=== PATIENT | female | born 1965 | race Caucasian/White ===

== ENCOUNTER → 2020-08-18 | Outpatient (CLI) | payer OTHER ==
[~2020-08-18] MED LIST: HUMI40KI2 SC; MULT1TAB7 PO; PROB250C PO; SYNT125T PO; ULTR5TAB PO
== END ==
LOC: M PLALAB 13:28
PROVIDERS: ATTEND Surgery
DX: Z15.09 Genetic susceptibility to other malignant neoplasm (principal)

== ENCOUNTER → 2020-08-23 | Outpatient (CLI) | payer OTHER ==
[~2020-08-23] MED LIST changes: +LIDOCAINE 1% MDV 20ML VIAL As Ordered ONE; +MIDAZOLAM INJ 2MG/2ML VIAL (J2250 PER 1MG) As Ordered ONE; +ONDA-196 PO; +PROC10TA4 PO; +PROMETHAZINE INJ 25 MG/ML VIAL (J2550) As Ordered ONE; +VANCOMYCIN 500MG/10ML VIAL As Ordered ONE; +diphenhydrAMINE 50MG/ML VIAL (J1200) As Ordered ONE; +fentaNYL 100 MCG/2 ML INJECTION (J3010) As Ordered ONE
--- NOTE | 2020-08-23 13:51 | IRHP ---
[facility] IR Pre-Procedure H & P General Date of Service: Aug 23, 2020 Procedure: Same Day Surgery Interval History and Physical I have seen the patient and reviewed last H & P performed within 30 days. There is no significant interval change. History of Present Illness Chief Complaint The patient is a 55-year-old female admitted with a reason for visit of Breast Ca. PRE-PROCEDURE DIAGNOSIS: Left-sided breast cancer HEART: Normal rate. LUNGS: Normal breathing at rest. ASA Classification ASA Classification: II-Mild systemic disease Mallampati Score: II NPO: Yes Problems with prior sedation: No Obstructive Sleep Apnea: No Plan moderate sedation Allergies Coded Allergies: Penicillins (Verified Allergy, Unknown, UNKNOWN, 08/10/20) Home Medications Scheduled Adalimumab (Humira Pen), 1 SYRINGE SC Q2WK, (Reported) Biotin (Biotin), 1 TAB PO DAILY, (Reported) Levothyroxine Sodium (Synthroid), 1 TAB PO DAILY, (Reported) Saccharomyces Boulardii (Probiotic), 1 CAP PO BID, (Reported) Scheduled PRN Ondansetron HCl (Ondansetron HCl), 8 MG PO Q8HP PRN for NAUSEA OR VOMITING Prochlorperazine Maleate (Prochlorperazine Maleate), 10 MG PO Q8HP PRN for ROGER SEA OR VOMITING Miscellaneous Medications Multivitamin with Minerals (Multiple Vitamin), 1 TAB PO, (Reported) VS, I&O, 24H, Fishbone Vital Signs/I&O Vital Signs Date Time Temp Pulse Resp B/P (MAP) Pulse Ox O2 Delivery O2 Flow Rate FiO2 08/23/20 12:42 98.0 63 16 99 Room Air WING TINAJERO MD Aug 23, 2020 13:51
[2020-08-23 16:30] VITALS: BP 113/59
--- NOTE | 2020-08-24 08:43 | IRPON ---
IR Postoperative Note Date Of Procedure: Aug 23, 2020 Time Of Procedure: 16:00 IR Postoperative Note IR Ultrasound and fluoroscopy guided port placement IR Ultrasound of the neck. IR Moderate sedation. Clinical indication: Left-sided breast cancer. Physician: Dr. Noe. Procedure: The patient was advised of the benefits, risks, and alternatives of the procedure and informed consent was obtained. A time-out was performed with verification of the patient's name, MRN, site of procedure and type of procedure to be performed. The patient was positioned in the supine position on the angiographic table. The site was prepped and draped in the usual sterile fashion. Moderate sedation was performed by the physician including the presence of an independent trained RN who assisted and monitored the patient's level of consciousness and physiologic status. Following the administration of fentanyl and Versed , the physician spent 45 minutes of continuous face to face time with the patient. Ultrasound of the neck reveals a patent and compressible right internal jugular vein. A marine designer radiograph reveals no gross abnormality. The neck and anterior chest wall were anesthetized with lidocaine. The right internal jugular vein was accessed using a microintroducer needle under ultrasound guidance, via a lateral approach. An 018 wire was advanced into the superior vena cava, the needle was removed and a microsheath was placed. An Amplatz wire was then passed into the inferior vena cava. An incision at the internal jugular vein access site and anterior chest wall were made using a scalpel. An incision was made at the anterior chest wall. A small pocket was created using a combination of blunt and sharp dissection. A tunneling device was then used to pass the catheter from the pocket to the neck puncture site. An 8- [employer] Smart power port was then positioned in the pocket. The catheter was then measured and cut. The introducer sheath was exchanged for a peel-away sheath. The catheter was passed through the peel-away sheath into the internal jugular vein and the peel-away sheath was removed. The port tip was positioned at the cavoatrial junction. The port was then accessed with a Abbasi needle. The port flushes and aspirates well. The puncture site in the neck was closed. The chest wall incision was then closed with 2-0 Vicryl and 4-0 Monocryl. Glue and Steri- Strips were applied. A sterile dressing was then applied. The patient tolerated the procedure well and was returned to the PRU in stable condition. Estimated blood loss: <5 ml. Complications: None. Conclusion: 1. Successful placement of an 8-[employer] [employer] Smart power port via the right internal jugular vein. The port is ready for immediate use. 2. Patient to follow up in IR clinic in 2 weeks. Thank you for this referral. WING NOE MD Aug 24, 2020 08:43
== END ==
LOC: M IRPRO 12:27
PROVIDERS: ATTEND Radiology Diagnostic Radiology
DX: C50.912 Malignant neoplasm of unspecified site of left female breast (principal); Z88.0 Allergy status to penicillin; Z79.899 Other long term (current) drug therapy
CPT/HCPCS: 36561; 99152; 99153; C1769; C1788; C1894; J1200; J1642; J1644; J2250; J3010; J3370

== ENCOUNTER → 2020-08-24 | Outpatient (CLI) | payer OTHER ==
[~2020-08-24] MED LIST changes: -LIDOCAINE 1% MDV 20ML VIAL As Ordered ONE; -MIDAZOLAM INJ 2MG/2ML VIAL (J2250 PER 1MG) As Ordered ONE; -PROMETHAZINE INJ 25 MG/ML VIAL (J2550) As Ordered ONE; -VANCOMYCIN 500MG/10ML VIAL As Ordered ONE; -diphenhydrAMINE 50MG/ML VIAL (J1200) As Ordered ONE; -fentaNYL 100 MCG/2 ML INJECTION (J3010) As Ordered ONE
--- NOTE | 2020-08-28 09:20 | ECHO ---
DATE OF PROCEDURE: 08/24/2020 Age: 55 Gender: Female Height: 67 inches Weight: 117 pounds REFERRING PHYSICIAN: Luiz Acosta MD INDICATION: Chemotherapy drugs that may affect the heart. MEASUREMENTS: 2D Measurements: Left ventricle diastole 4.3 cm Intraventricular septum 0.81 cm Posterior wall 0.82 cm Aortic root 3.0 cm Left atrium 3.0 cm Inferior vena cava 1.2 cm (more than 50% respiratory variation) Doppler Measurements: No aortic stenosis No aortic regurgitation Aortic valve velocity 168 cm/s LVOT velocity 96.6 cm/s Trace mitral regurgitation Mitral E velocity 78.0 cm/s Mitral A velocity 57.4 cm/s Mitral deceleration time 240 msec Very mild tricuspid regurgitation No pulmonic regurgitation Pulmonary artery acceleration time 195 msec MITRAL ANNULAR TISSUE DOPPLER E prime septal 8.9 cm/s, E prime lateral 12.2 cm/s DESCRIPTION: Rhythm was predominantly sinus bradycardia. Image quality was good. This was a 2D, M-mode, color flow Doppler, and pulsed wave Doppler examination including mitral annular tissue Doppler. No pericardial effusion. CONCLUSIONS: 1. Normal echocardiogram Doppler. 2. Normal left ventricle internal dimensions and wall thickness. Normal regional LV wall motion and wall thickening. Normal LV systolic function. LVEF of 72% (3D). Normal LV diastolic function. Normal peak systolic longitudinal strain. MTDD
== END ==
LOC: M CARPUL 11:17
PROVIDERS: ATTEND Specialist
DX: C50.919 Malignant neoplasm of unspecified site of unspecified female breast (principal)

== ENCOUNTER → 2020-08-28 | Outpatient (CLI) | payer OTHER ==
--- NOTE | 2020-08-29 19:02 | REP ---
INDICATION: STAGING LEFT BREAST CANCER. COMPARISON: None. TECHNIQUE: Whole-body PET/CT scanning from the skull base to the upper thighs with 14.8 mCi of F 18 FDG. FINDINGS: Neck and supraclavicular areas: There are no hypermetabolic foci. Chest: There is an hypermetabolic focus in the left breast with a standard uptake value of 3.24. There are no other hypermetabolic foci in the chest. Abdomen, pelvis and upper thighs: There is an hypermetabolic focus in the distal stomach with a maximal standard uptake value of 5.08. There are no hypermetabolic foci in the abdomen, pelvis or upper thighs, otherwise. Specifically there are no hepatic or adrenal foci. No skeletal foci are identified. IMPRESSION: There is an hypermetabolic focus in the left breast. There is an hypermetabolic focus in the distal stomach. <Electronically signed by Abhi Boston > 08/29/20 [id number]
== END ==
LOC: M PLARAD 13:05
PROVIDERS: ATTEND Specialist
DX: C50.812 Malignant neoplasm of overlapping sites of left female breast (principal)
CPT/HCPCS: 78815; A9552

== ENCOUNTER → 2020-09-09 | Outpatient (CLI) | payer OTHER ==
[~2020-09-09] MED LIST changes: +VITA200038 PO
== END ==
LOC: M LABSMTC 10:52
PROVIDERS: ATTEND Anesthesiology
DX: Z20.828 Contact with and (suspected) exposure to other viral communicable diseases (principal); Z11.59 Encounter for screening for other viral diseases

== ENCOUNTER → 2020-09-12 | Outpatient (POV) | payer OTHER ==
[~2020-09-12] VITALS: Ht 167.6 cm; Wt 53.2 kg
[2020-09-12 09:59] VITALS: BP 141/79
--- NOTE | 2020-09-15 08:19 | IRPN ---
[facility] IR Progress Note IR Progress Note DATE: Sep 12, 2020 FOLLOW-UP: Status post port placement. Patient says she is doing well, no pain or discharge from the site. No fevers or chills. ON EXAMINATION: Port site appears to be healing well. No redness, fluctuance or discharge. IMPRESSION: Doing well status post port placement. No further follow-up scheduled unless initiated by patient and/or referring provider. Thank you for this referral Allergies Coded Allergies: Penicillins (Verified Allergy, Unknown, UNKNOWN, 08/10/20) VS,Fishbone, I+O VS, Fishbone, I+O Vital Signs Date Time Temp Pulse Resp B/P (MAP) Pulse Ox O2 Delivery O2 Flow Rate FiO2 09/12/20 09:59 98.6 70 20 141/79 (99) 100 Room Air WING TINAJERO MD Sep 15, 2020 08:19
== END ==
LOC: M IRPOV 09:19
PROVIDERS: ATTEND Radiology Diagnostic Radiology
DX: Z45.2 Encounter for adjustment and management of vascular access device (principal)

== ENCOUNTER 2020-09-14 06:35 | Day surgery (SDC) | payer OTHER ==
[~2020-09-14] VITALS: Ht 165.1 cm; Wt 56.4 kg
[~2020-09-14 06:35] MED LIST changes: +NS 1,000 ML IV ONE
[2020-09-14] MEDS ORDERED: propofoL 500 MG/50 ML VIAL As Ordered ONE (07:16)
[2020-09-14] MEDS ORDERED: LIDOCAINE 2% 100MG/5ML SDV (FOR ANES.) As Ordered ONE (07:16)
[2020-09-14] MEDS ORDERED: fentaNYL 100 MCG/2 ML INJECTION (J3010) As Ordered ONE (07:18)
--- NOTE | 2020-09-14 08:03 | ROOR ---
Patient Name: Zoraida Gao Procedure Date: 09/14/2020 7:34 AM Date of : 1965 Age: 55 Room: [facility] Gender: Female Note Status: Finalized Procedure: Upper GI endoscopy Indications: Abnormal PET scan of the GI tract. PET shows area of activity at distal stomach Providers: Shay Qureshi MD Referring MD: EMILI SMITH MD Requesting Provider: Medicines: Monitored Anesthesia Care Complications: No immediate complications. Procedure: Pre-Anesthesia Assessment: - Prior to the procedure, a History and Physical was performed, and patient medications and allergies were reviewed. The patient is competent. The risks and benefits of the procedure and the sedation options and risks were discussed with the patient. All questions were answered and informed consent was obtained. Patient identification and proposed procedure were verified by the physician, the nurse and the wrapper stemmer hand in the procedure room. Mental Status Examination: alert and oriented. Airway Examination: normal oropharyngeal airway and neck mobility. Prophylactic Antibiotics: The patient does not require prophylactic antibiotics. Prior Anticoagulants: The patient has taken no previous anticoagulant or antiplatelet agents. ASA Grade Assessment: II - A patient with mild systemic disease. After reviewing the risks and benefits, the patient was deemed in satisfactory condition to undergo the procedure. The anesthesia plan was to use monitored anesthesia care (MAC). Immediately prior to administration of medications, the patient was re-assessed for adequacy to receive sedatives. The heart rate, respiratory rate, oxygen saturations, blood pressure, adequacy of pulmonary ventilation, and response to care were monitored throughout the procedure. The physical status of the patient was re-assessed after the procedure. The Endoscope was introduced through the mouth, and advanced to the second part of duodenum. The upper GI endoscopy was accomplished without difficulty. The patient tolerated the procedure well. Findings: The examined esophagus was normal. The entire examined stomach was normal. The examined duodenum was normal. Impression: - Normal esophagus. - Normal stomach. - Normal examined duodenum. - No specimens collected. Recommendation: - Discharge patient to home. - Resume previous diet. - Continue present medications. Procedure Code(s): --- Professional --- 20661, Esophagogastroduodenoscopy, flexible, transoral; diagnostic, including collection of specimen(s) by brushing or washing, when performed (separate procedure) Diagnosis Code(s): --- Professional --- R93.3, Abnormal findings on diagnostic imaging of other parts of digestive tract CPT copyright 2019 [employer]. All rights reserved. The codes documented in this report are preliminary and upon certified medical coder review may be revised to meet current compliance requirements. hSay Qureshi MD Shay Qureshi MD 09/14/2020 8:02:59 AM Electronically signed by Shay Qureshi MD Number of Addenda: 0 Note Initiated On: 09/14/2020 7:34 AM Estimated Blood Loss: Estimated blood loss: none.
[2020-09-14 08:15] VITALS: BP 108/66
[2020-09-21] MEDS ORDERED: LEVO125C PO (15:56)
[2020-09-21] MEDS ORDERED: PROC10TA4 PO (15:56)
[2020-09-21] MEDS ORDERED: PROBCAP14 PO (15:56)
[2020-09-21] MEDS ORDERED: HUMI40KI2 SC (15:56)
[2020-09-21] MEDS ORDERED: VITA200028 PO (15:56)
[2020-09-21] MEDS ORDERED: ONDA4TAB6 PO (15:56)
[2020-09-21] MEDS ORDERED: VITMTA PO (15:56)
[2020-09-21] MEDS ORDERED: LIDO2.5C15 TOP (16:15)
== END 2020-09-14 08:18 | disposition home or self-care (01) ==
LOC: M OPP 06:35
PROVIDERS: ATTEND Surgery
DX: R93.3 Abnormal findings on diagnostic imaging of other parts of digestive tract (principal); E03.9 Hypothyroidism, unspecified; K50.90 Crohn's disease, unspecified, without complications; Z85.3 Personal history of malignant neoplasm of breast; Z79.899 Other long term (current) drug therapy; Z88.0 Allergy status to penicillin
CPT/HCPCS: 43235; J3010

== ENCOUNTER → 2020-09-18 | Outpatient (CLI) | payer OTHER ==
[~2020-09-18] MED LIST changes: +LEVO125C PO; +LIDO2.5C15 TOP; -NS 1,000 ML IV ONE; +ONDA4TAB6 PO; +PROBCAP14 PO; +VITA200028 PO; +VITMTA PO
[2020-09-18 08:28] VITALS: BP 128/82
--- NOTE | 2020-09-18 09:59 | ROOPDOC ---
[facility] Report Of Operation Report of Operation DATE OF PROCEDURE: 09/18/20 DIAGNOSIS: Left breast cancer, left breast second suspicious nodule at 3:00 and left breast cystic lesion at 7:00 PROCEDURE: ultrasound guided biopsy of the left breast suspicious lesion at 3:00 with clip placement, second clip placement into know left breast cancer lesion and ultrasound guided aspiration of left breast 7:00 cystic lesion SURGEON: Nicolas Esqueda BLOOD LOSS: minimal COMPLICATIONS: none Lidocaine 1% LOT [id number] Expiration 04/2021 Sodium Bicarbonate 8.4% LOT [id number] Expiration 06/2021 Smaller 3:00 nodule bx Hydromark clip LOT [id number] Expiration 04/2023 SHAPE : 3 Bx device: TEMNO 18G x 20 cm LOT [id number] Expiration 06/2023 Known cancer site Hydromark clip LOT [id number] Expiration 04/2023 SHAPE : 4 Informed consent was obtained. The most common risk and possible complications including bleeding, hematoma, bruising, infection, injury to surrounding structures were explained to the patient and the patient expressed understanding. Patient was placed on the bed in the supine position. Appropriate time out was done stating patients name, date of , and the procedure to be performed. The left breast was prepped and draped in the usual fashion. The ultrasound was used to confirm the location of the lesion in the left breast at 3:00 lateral to the site of known cancer. There was also possibly cystic structure noted in the left breast at 7:00 2 centimeters from the nipple with possible adjacent blood flow on doppler. Plain Lidocaine 1% and 8.4% sodium bicarbonate 10:1 mix was used to anesthetize the skin, the biopsy site and tissues along the anticipated biopsy tract. Small skin incision was made with blade number 11. Temno 18G cannula with introducer was inserted through the incision and advanced under the ultrasound guidance to position immediately adjacent to the 3:00 nodular lesion. Next, the introducer was removed and Temno 18G biopsy device was places in the cannula. Pre-biopsy imaging, and post-biopsy imaging were captured. Two good core biopsies were taken at various levels of the lesion. No additional biopsies were taken as the lesion become poorly visible. Specimen was placed in formaldehyde, labeled with appropriate biopsy site and patients name, and sent to pathology for evaluation. Next, while the biopsy cannula was kept in place to kellie the site of biopsy, a clip introducer was inserted parallel to the canula. SHAPE 3 Hydromark clip was deployed under sonographic guidance. Post-clip placement image was captured. Manual pressure over the biopsy cavity and tract was held after the clip introducer was withdrawn. No bleeding was noted upon removal of the pressure. Next, our attention was turned toward known cancer mass. Using the same access site, which was previously anesthetized, additional local anesthetic was injected at the site of known cancer. Clip introducer was inserted under sonographic guidance into the know cancer site represented by irregular hypoechoic mass. Clip was deployed. The imaging was captured. The introducer was then removed and the manual pressure was held at the procedure site. No bleeding was seen upon pressure release. Steri strips were placed at the site of the skin incision. At this time, we focused at the site of cystic lesion located at left breast at 7:00 2 CFN. Plain Lidocaine 1% and 8.4% sodium bicarbonate 10:1 mix was used to anesthetize the skin, the aspiration site and tissues along the anticipated aspiration tract. The cystic lesion was aspirated completely with 18 G needle. 1 cc of serous fluid was removed. The lesion completely disappeared. Imaging was captured. Manual pressure was held at the aspiration site. Steri strips were placed over the skin puncture site. Post-biopsy mammogram of the left breast was obtained and showed 2 new clips in expected position. Postprocedural dressing was placed. Patient tolerated procedure well. Discharge instructions were discussed with the patient and the patient expressed understanding. NICOLAS ESQUEDA DO Sep 18, 2020 09:59
--- NOTE | 2020-09-18 10:42 | REP ---
INDICATION: N63.20 LT BREAST MASS ,US GUIDED BIOPSY. COMPARISON: None TECHNIQUE: Ultrasound guidance was provided Dr. Carranza during ultrasound-guided biopsy. . FINDINGS: A linear echogenic focus is seen within a mixed echo lesion consistent with needle placement. There are 4 images which reflect clip placement 3 of the 4 images show the word clip outside the suspected lesion while 1 image shows the word clip within the suspected lesion. IMPRESSION: Ultrasound-guided procedure performed by Dr. Carranza.. <Electronically signed by Marcelo Henry > 09/18/20 [id number]
--- NOTE | 2020-09-18 16:29 | REP ---
INDICATION: N63.20 LT BREAST MASS, POST US GUIDED BIOPSY. COMPARISON: [facility] 07/19/2020. TECHNIQUE: ML and CC views left breast performed following placement of biopsy clips by Dr. Carranza, status post ultrasound-guided biopsy at 2 locations in the left breast. FINDINGS: There is a biopsy clip noted in the upper-outer quadrant of the left breast which is seen on the prior study. There is moderately dense fibroglandular tissue. There are 2 new biopsy clips placed in the upper-outer quadrant of the left breast. IMPRESSION: Two new biopsy clips placed in the upper-outer quadrant of left breast, status post ultrasound-guided biopsy performed today by Dr. Carranza. RECOMMENDATION: Clinical follow-up. <Electronically signed by Abhi Barrera > 09/18/20 [id number]
== END ==
LOC: M WHCPRO 06:56
PROVIDERS: ATTEND Surgery
DX: C50.912 Malignant neoplasm of unspecified site of left female breast (principal); N63.20 Unspecified lump in the left breast, unspecified quadrant; N60.02 Solitary cyst of left breast

== ENCOUNTER → 2020-09-28 | Outpatient (CLI) | payer OTHER ==
[~2020-09-28] MED LIST changes: +PROHANCE 279.3MG/ML 15ML VIAL As Ordered ONE
--- NOTE | 2020-09-28 16:32 | REP ---
INDICATION: LT BREAST MAL FLORENTIN. COMPARISON: Comparison is made with recent mammography and sonography from [facility] and mammography and sonography post biopsy from 18 September 2020. TECHNIQUE: Three [place]rec[place] MRI imaging was performed with a dedicated breast coil. Axial, coronal, and sagittal T1 and T2 weighted scans were obtained with and without fat saturation in the usual fashion. The study includes dynamically acquired post gadolinium-enhanced imaging with image subtraction. Maximum intensity projection and multi planar reformation imaging is included as well. This study is interpreted with the aid of [employer], an FDA approved computer aided detection (CAD) software program, on a dedicated breast MRI workstation. The gadolinium enhancement dose is 10 mL of intravenous ProHance. FINDINGS: There is a moderate to marked amount of fibroglandular tissue bilaterally. T2 weighted scans demonstrate Hydro[employer] marker clip device is in the left breast laterally.. There are 2 of these at approximately 3 o'clock. There is no evidence of axillary or internal mammary lymphadenopathy on either side. No significant breast cystic changes seen. In the left breast, at 3 o'clock, the known biopsy-proven invasive duct carcinoma is seen. This is a 1.5 x 1.3 x 1.6 cm irregularly-shaped heterogeneously enhancing mass demonstrating significant washout kinetics on dynamic post-contrast images. This corresponds to the biopsy-proven carcinoma. No other suspicious morphologic abnormality or area of enhancement and washout is seen in either breast. IMPRESSION: BI-RADS category 6 known left breast malignancy. 1.6 cm heterogeneously enhancing mass corresponding to the biopsy-proven carcinoma in the left mid breast at 3 o'clock. No other suspicious finding.. <Electronically signed by Phong Chapin > 09/28/20 [id number]
== END ==
LOC: M RAD 13:44
PROVIDERS: ATTEND Surgery
DX: C50.812 Malignant neoplasm of overlapping sites of left female breast (principal)
CPT/HCPCS: A9576; C8908

== ENCOUNTER → 2020-11-14 | Outpatient (REF) | payer OTHER ==
[~2020-11-14] MED LIST changes: +LIDO1CRE42 TOP; -LIDO2.5C15 TOP; -PROHANCE 279.3MG/ML 15ML VIAL As Ordered ONE
[2020-11-14 11:20] LABS: CHOLESTEROL RISK RATIO 1.879 (<5); FREE T3 3.1 PG/ML (2.2-4.0); FREE T4 1.19 NG/DL (0.76-1.46); MAGNESIUM LEVEL 2.2 MG/DL (1.8-2.4); THYROID STIMULATING HORMONE 0.719 uIU/ML (0.358-3.740)
== END ==
LOC: M LAB REF 10:21
PROVIDERS: ATTEND Family Medicine
DX: R19.7 Diarrhea, unspecified (principal); E03.8 Other specified hypothyroidism; C50.911 Malignant neoplasm of unspecified site of right female breast

== ENCOUNTER → 2021-01-01 | Outpatient (CLI) | payer OTHER ==
[~2021-01-01] MED LIST changes: +AZIT-12 PO; +DIPH2.5T15 PO; +HUMI40IN2
--- NOTE | 2021-01-08 11:30 | ECHO ---
ECHOCARDIOGRAM DATE OF PROCEDURE: 01/01/2021 Age: 56 Gender: Female Height: 170 cm Weight: 52 kg REFERRING PHYSICIAN: Luiz Acosta MD INDICATION: Chemotherapy MEASUREMENTS: IVS 0.7 LV 4.3 LVPW 0.8 LA 3.0 Aorta 3.2 Mitral E wave velocity is 44; A wave 33 E prime septal 6.8 E prime lateral 9.0 IVC 0.9 Left atrial volume index 24 FINDINGS: This study is of acceptable quality. Underlying sinus rhythm. Normal left ventricle (LV) size with preserved LV systolic function, estimated left ventricular ejection fraction (LVEF) 60-65%. Normal right ventricle (RV) size and systolic function. Normal both atria. Aortic, mitral and tricuspid valves were all reasonably well seen and appear normal. Pulmonic valve was not well visualized. No pericardial effusion is noted. Inferior vena cava is of normal size and appropriately collapses with inspiration indicative of normal central venous pressure (CVP). Aortic root and abdominal aorta appear normal. Aortic arch was not well seen. Doppler interrogation reveals competent aortic valve. There is trace mitral and tricuspid insufficiency. Calculated pulmonary artery pressure is within normal limits. Evaluation of diastolic function indicates probably normal filling pattern even though tissue Doppler velocities are mildly reduced. CONCLUSIONS: 1. Study is of acceptable technical quality, underlying sinus rhythm. 2. Normal left ventricle (LV) size with normal LV systolic and likely also diastolic function. 3. No significant valvular disease. 4. Normal central venous pressure, normal pulmonary artery pressure. 5. Essentially normal echocardiogram.
== END ==
LOC: M CARPUL 10:24
PROVIDERS: ATTEND Specialist
DX: C50.919 Malignant neoplasm of unspecified site of unspecified female breast (principal)

== ENCOUNTER → 2021-02-13 | Outpatient (CLI) | payer OTHER ==
[~2021-02-13] MED LIST changes: +AZAT50TA2 PO; +K-TA10TA PO; +POTA20TA6 PO
--- NOTE | 2021-02-13 10:17 | RADONC.CN ---
Radiation Oncology Hx/Consult Radiation Oncology Consult Date of Service: Feb 13, 2021 Pt Identifier Zoraida Gao is a 55 year old female with Crohn's disease on Humira and left breast cancer [id number] ER/[place]/HER2+ Grade 3 s/p biopsy on 07/19/20 and NAC with TC+Taxol completed 02/13/21, she continues on Herceptin (did not tolerate Perjeta). She is seen in advance of anticipated surgery with Dr. Carranza on 03/26/21 to discuss adjuvant RT scenarios. Diagnosis/Treatment History Oncologic History Noted left breast lump in 2018 steadily grew 06/14/20 Mammogram/US with left breast anomaly @ 3:00 07/19/20 Biopsy showing IDC grade 3 ER/[place]/HER2+ 09/28/20 MRI without regional abnormalities Received 4 doses of dose dense Adriamycin and cyclophosphamide with Neulasta support. Started weekly paclitaxel, trastuzumab and Pertuzumab every 3 weeks on 11/28/2020. Patient had severe diarrhea, Pertuzumab dose was stopped on 12/19/2020. Paclitaxel and trastzumab are given weekly as of 12/19/2020. Anticipated lumpectomy and SLNB on 03/26/21 ([facility]) Menses @ 11 Menopause @ 50 OCP for 10 years No HRT No IVF Interval History Zoraida has been struggling mightily as of late with her Crohn's off of Humira, having 15 loose BM daily. She also has neuropathy and fatigue from chemo as well as nausea and vomiting which has been hard to control in the last few days. She is unsure whether she will be able to receive the last dose of taxol today. If she cannot she intends to stop chemo. She has no breast complaints otherwise. Past Medical History: Anxiety Crohn's RA Hypothyroid Family History: Father mesothelioma Social History: Never smoker Drinks 6 drinks daily every day Allergies / Meds Allergies: Coded Allergies: Penicillins (Verified Allergy, Unknown, UNKNOWN, 08/10/20) Home Meds Active Scripts Diphenoxylate HCl/Atropine (Diphenoxylate-Atrop 2.5-0.025) 1 Each Tablet, 1 TAB PO BID PRN for DIARRHEA MDD 2 for 30 Days, #60 TAB Prov:MEMO EDWARDS MD 12/26/20 Lidocaine/Prilocaine (Lidocaine-Prilocaine Cream) 2.5%/2.5% Cream..g., 1 APLCT TOP ASDIRECTED, #30 GRAM 3 Refills Prov:AMADA ROJAS MD FACP 10/04/20 Reported Medications Azathioprine (Azathioprine) 50 Mg Tablet, 100 MG PO DAILY for 30 Days, #60 TAB 01/30/21 Prochlorperazine Maleate (Prochlorperazine Maleate) 10 Mg Tablet, 10 MG PO Q6H PRN for NAUSEA OR VOMITING for 5 Days, #20 TAB 09/21/20 Ondansetron (Ondansetron Odt) 4 Mg Tab.rapdis, 1 TAB PO Q6-8HP PRN for nausea/vomiting for 4 Days, #16 TAB 09/21/20 Lactobacillus Acidophilus (Probiotic) 1 Each Capsule, 1 CAP PO, CAP 09/21/20 Multivitamins (Thera M Plus Tablet) 1 Each Tablet, 1 TAB PO QAM for 30 Days, #30 TAB 09/21/20 Levothyroxine Sodium (Levothyroxine) 125 Mcg Capsule, 125 MCG PO, CAP 09/21/20 Ergocalciferol (Vitamin D2) (Vitamin D2) 50 Mcg (2000 Unit) Tablet, 50 MCG PO, TAB 09/21/20 Discontinued Scripts Potassium Chloride (K-Tab ER) 10 Meq Tablet.er, 10 MEQ PO DAILY for 5 Days, #5 TAB 0 Refills Prov:MEMO EDWARDS MD 01/30/21 Review of Systems Constitutional: Reports: Malaise, Fatigue, Weight Loss; Denies: Fever Eyes: Denies: Pain HEENT: Denies: Head Aches Skin: Denies: Rash Pulmonary: Denies: Dyspnea Cardiovascular: Denies: Chest Pain Gastrointestinal: Reports: Nausea, Vomiting, Diarrhea Hematologic: Denies: Bruising Musculoskeletal: Denies: Neck pain, Back pain Neurological: Reports: Numbness; Denies: Weakness Psych: Reports: Mood Normal Vital Signs Ht 66" Wt 107 lbs BMI 17 T 97.8 P 103 RR 18 BP 104/78 O2 99% Pain 0 Fatigue 4 General Exam: Alert, Cooperative, No Acute Distress Eye Exam: PERRLA, EOMI ENT EXAM: Atraumatic Neck Exam: Supple Chest Exam: Clear to auscultation, Normal air movement Heart Exam: Rate Normal, Regular Rhythm Breast Exam: Symmetric Bilaterally; Negative: Lumps or Masses Abdomen Exam: Normal bowel sounds, Soft Extremity Exam: Negative: Edema Skin Exam: Other skin issue (Pallor) Neuro Exam: Normal Speech, Cranial Nerves 3-12 NL Psych Exam: Mental status NL Diagnostic and Laboratory Diagnostic Review Radiologic images, relevant labs and pathology reports were personally reviewed and discussed with Ms. Gao. Assessment and Plan Impression Ms. Gao is a 55 year old female with a history of Crohn's disease on Humira and left breast cancer [id number] ER/[place]/HER2+ Grade 3 s/p biopsy on 07/19/20 and NAC with TC+Taxol completed 02/13/21, she continues on Herceptin (did not tolerate Perjeta). She is seen in advance of anticipated surgery with Dr. Carranza on 03/26/21 to discuss adjuvant RT scenarios. Stage Left breast cancer [id number] ER/[place]/HER2+ Grade 3 stage IA Performance Status ECOG 1 Plan We had an extensive discussion with Ms. Gao regarding the diagnosis at hand and available therapeutic options. She is suffering mightily from chemo with neuropathy and nausea, she is also quite pale today. She also has had decompensation of her Crohn's without Humira. She is hopeful to resume that soon. She has elected to pursue BCS with a tentative surgical date of 03/26/21. I discussed that if the lumpectomy specimen is completely excised, and SLNB is negative that I would offer her whole breast RT 40 Gy in 15 fractions + 10 Gy in 5 fraction tumor bed boost. I would use DIBH technique in her case given her habitus is petite (as opposed to prone technique), to spare heart and lung dose given her young age. If she has a CR to NAC on her lumpectomy I would still proceed thusly as RT decision making is based on maximal stage. The utility of RT omission in the setting of CR to NAC is an unresolved question. If she has progressive disease in the breast or brice involvement on final path I would offer her WBI + RNI for 28 fractions. We discussed the logistics of receiving radiation therapy in detail including the need for a 1-time planning session. This can occur 2-3 weeks after surgery barring complications. We discussed the toxicities of treatment including fatigue, skin reaction, late cardiopulmonary morbidity and internal scarring (fibrosis). After discussing the risks, benefits and alternatives to radiation therapy, Ms. Gao was amenable to pursuing radiotherapy. All questions were answered to the patient's satisfaction. We instructed the patient that if there were any questions,concerns or changes in clinical status in the interim to contact us. Recommendations Pending final surgical pathology, adjuvant RT as discussed above Simulation TBD based on surgical date and post-operative course Billing Statement Total time of [45] minutes was spent preparing for the visit [3], obtaining HPI [10], examining the patient [2], reviewing diagnostic tests [4], discussing management options [16], coordinating care [2], and writing this note [8]. DIDI WOOD MD Feb 13, 2021 10:17
== END ==
LOC: M ONCR 07:58
PROVIDERS: ATTEND General Practice
DX: C50.912 Malignant neoplasm of unspecified site of left female breast (principal); G62.2 Polyneuropathy due to other toxic agents; K50.90 Crohn's disease, unspecified, without complications; R11.0 Nausea; Z88.0 Allergy status to penicillin; Z79.890 Hormone replacement therapy; Z79.899 Other long term (current) drug therapy

== ENCOUNTER → 2021-02-16 | Outpatient (CLI) | payer OTHER ==
[2021-02-16 13:35] LABS: BLOOD UREA NITROGEN 22 MG/DL (7-18); CALCIUM LEVEL 8.7 MG/DL (8.5-10.1); CARBON DIOXIDE LEVEL 29 MEQ/L (21-32); CHLORIDE LEVEL 103 MEQ/L (98-107); CREATININE FOR GFR 0.65 MG/DL (0.55-1.30); GLOMERULAR FILTRATION RATE > 60.0 (>51); GLUCOSE, FASTING 91 MG/DL (70-100); POTASSIUM SERUM 3.2 MEQ/L (3.5-5.1); SODIUM LEVEL 140 MEQ/L (136-145)
== END ==
LOC: M PLALAB 10:03
PROVIDERS: ATTEND Surgery
DX: C50.919 Malignant neoplasm of unspecified site of unspecified female breast (principal)

== ENCOUNTER → 2021-02-26 | Outpatient (CLI) | payer OTHER ==
[~2021-02-26] MED LIST changes: +PROHANCE 279.3MG/ML 5ML VIAL As Ordered ONE
--- NOTE | 2021-02-26 11:50 | REP ---
INDICATION: INVASIVE DUCTAL CA OF BREAST S/P CHEMO LT BREAST. COMPARISON: Comparison MRI study is from September 28, 2020. Comparison PET-CT August 28, 2020. Comparison mammography September 18, 2020. TECHNIQUE: Three Grecia MRI imaging was performed with a dedicated breast coil. Axial, coronal, and sagittal T1 and T2 weighted scans were obtained with and without fat saturation in the usual fashion. The study includes dynamically acquired post gadolinium-enhanced imaging with image subtraction. Maximum intensity projection and multi planar reformation imaging is included as well. This study is interpreted with the aid of Youtego, an FDA approved computer aided detection (CAD) software program, on a dedicated breast MRI workstation. The gadolinium enhancement dose is 9 mL of intravenous ProHance. FINDINGS: There is a moderate to marked amount of fibroglandular tissue bilaterally corresponding with the mammographic pattern. There is mild background parenchymal enhancement. There is no evidence of axillary lymphadenopathy or significant breast cystic change. High-resolution pre and post-contrast T1 and T2 weighted scans show no suspicious morphologic abnormality in either breast. Dynamically acquired sequential postcontrast images show no suspicious area of enhancement and washout kinetics in either breast to suggest malignancy. Subtraction images show no additional abnormality. There are magnetic field susceptibility artifacts in the left lateral breast corresponding to previously placed biopsy marker clips. The previously noted enhancing mass in the left breast is no longer seen. There is no evidence of new lesion in either breast. No axillary mass or adenopathy is seen. There is an artifact related to an [id number] catheter in the right subclavicular soft tissues. IMPRESSION: BI-RADS category 6 bilateral breast MRI findings. The previously noted left breast mass is no longer apparent. No new lesion is seen in either breast. No evidence of adenopathy. <Electronically signed by Phong Chapin > 02/26/21 [id number]
== END ==
LOC: M RAD 09:23
PROVIDERS: ATTEND Surgery
DX: C50.919 Malignant neoplasm of unspecified site of unspecified female breast (principal)
CPT/HCPCS: A9576; C8908

== ENCOUNTER → 2021-03-29 | Outpatient (CLI) | payer OTHER ==
[~2021-03-29] MED LIST changes: -PROHANCE 279.3MG/ML 5ML VIAL As Ordered ONE
== END ==
LOC: M LABSMTC 10:24
PROVIDERS: ATTEND Anesthesiology
DX: Z01.818 Encounter for other preprocedural examination (principal); Z11.52 Encounter for screening for COVID-19

== ENCOUNTER 2021-04-03 06:33 | Observation (INO) | payer OTHER ==
[~2021-04-03] VITALS: Ht 167.6 cm; Wt 52.9 kg
[~2021-04-03 06:33] MED LIST changes: +CLINDAMYCIN 900 MG in IV 1 EA IV ONE; +LIDOCAINE 1% MDV 20ML VIAL SQ PRN; +LR 1,000 ML IV ONE; +METHYLENE BLUE 0.5% (5MG/ML) 10 ML AMP (PROVAYBLUE) XX ONE; +POTA-151 PO; -POTA20TA6 PO; -PROC10TA4 PO; +PROC10TA5 PO
[2021-04-03] MEDS: HEPARIN SOD (PORCINE) 5000UNITS/ML 1ML VIAL/SYRINGE SQ ONE ×2 (09:07→10:12)
[2021-04-03] MEDS ORDERED: BUPIVACAINE HCL 0.25% 30ML VIAL As Ordered ONE (09:13)
[2021-04-03] MEDS ORDERED: LIDOCAINE 1% SDV 30ML VIAL As Ordered ONE (09:13)
[2021-04-03] MEDS ORDERED: METHYLENE BLUE 0.5% (5MG/ML) 10 ML AMP (PROVAYBLUE) As Ordered ONE (09:14)
[2021-04-03] MEDS ORDERED: MIDAZOLAM INJ 2MG/2ML VIAL (J2250 PER 1MG) As Ordered ONE (09:51)
[2021-04-03] MEDS ORDERED: fentaNYL 100 MCG/2 ML INJECTION As Ordered ONE ×3 (09:51→14:11)
[2021-04-03] MEDS ORDERED: ROCURONIUM BROMIDE 50 MG/5 ML VIAL As Ordered ONE (09:51)
[2021-04-03] MEDS ORDERED: ONDANSETRON 4MG/2ML VIAL As Ordered ONE (09:51)
[2021-04-03] MEDS ORDERED: dexameTHASONE 4 MG/ML 1ML VIAL (J1100 PER 1MG) As Ordered ONE (09:51)
[2021-04-03] MEDS ORDERED: METOCLOPRAMIDE INJ 10MG/2ML VIAL (J2765 PER 1) As Ordered ONE (09:51)
[2021-04-03] MEDS ORDERED: propofoL 200 MG/20 ML VIAL As Ordered ONE ×2 (09:51→10:23)
[2021-04-03] MEDS ORDERED: LIDOCAINE 2% 100MG/5ML SDV (FOR ANES.) As Ordered ONE (09:51)
[2021-04-03] MEDS ORDERED: SUGAMMADEX SODIUM 500 MG/5 ML VIAL (BRIDION) As Ordered ONE (09:52)
[2021-04-03] MEDS ORDERED: SUCCINYLCHOLINE 100 MG/5 ML SYRINGE (J0330) As Ordered ONE (09:52)
[2021-04-03] MEDS ORDERED: ACETAMINOPHEN 1000MG 100ML IV BTL (OFIRMEV) (J0131 PER 10MG) As Ordered ONE (10:04)
[2021-04-03] MEDS ORDERED: ePHEDrine SULFATE 25 MG/5 ML(5MG/ML) SYRINGE As Ordered ONE ×2 (10:26→10:39)
[2021-04-03] MEDS ORDERED: DESFLURANE 240 ML INHALANT As Ordered ONE (13:19)
[2021-04-03] MEDS: fentaNYL 100 MCG/2 ML INJECTION IV PRN ×4 (14:10→14:26)
[2021-04-03] MEDS ORDERED: ONDANSETRON 4MG/2ML VIAL IV PRN ×2 (14:15→14:25)
[2021-04-03] MEDS ORDERED: MORPHINE 2 MG/ML 1ML VIAL (J2270) IV PRN (14:15)
[2021-04-03] MEDS ORDERED: LR 1,000 ML IV SCH ×2 (14:15→14:25)
[2021-04-03] MEDS ORDERED: oxyCODONE 5MG TAB PO PRN (14:25)
[2021-04-03] MEDS ORDERED: HYDROMORPHONE HCL 0.5 MG/ 0.5 ML SYRINGE (J1170 PER 1) IV PRN (14:55)
[2021-04-03] MEDS ORDERED: LOMOTIL 2.5MG/0.025MG TABLET PO PRN (15:05)
[2021-04-03 15:40] VITALS: BP 122/102
[2021-04-03 16:10] VITALS: BP 99/56
[2021-04-03 16:40] VITALS: BP 100/54
[2021-04-03] MEDS: LACTOBACILLUS ACIDOPHILUS CAP (BACID) PO SCH (16:51)
[2021-04-03] MEDS: ACETAMINOPHEN TAB 650MG DOSE (2X325MG) PO PRN (16:51)
[2021-04-03 17:40] VITALS: BP 99/54
[2021-04-03 18:00] VITALS: BP 101/56
[2021-04-03] MEDS: traMADol 50 MG TAB PO PRN (21:06)
[2021-04-03 22:00] VITALS: BP 93/52
[2021-04-04 02:00] VITALS: BP 101/58
[2021-04-04] MEDS: ACETAMINOPHEN TAB 650MG DOSE (2X325MG) PO PRN ×2 (02:27→12:03)
[2021-04-04 06:00] VITALS: BP 116/73
[2021-04-04] MEDS ORDERED: LEVOTHYROXINE 125MCG TABLET (0.125MG) PO SCH (06:00)
[2021-04-04] MEDS: traMADol 50 MG TAB PO PRN (06:01)
[2021-04-04] MEDS ORDERED: VITAMIN D 1,000 INTERNATIONAL UNITS TABLET PO SCH (09:00)
[2021-04-04] MEDS ORDERED: MULTIVITAMINS/MINERALS THERAP 1 TAB PO SCH (09:00)
[2021-04-04 10:00] VITALS: BP 114/71
[2021-04-04] MEDS: LACTOBACILLUS ACIDOPHILUS CAP (BACID) PO SCH (12:04)
[2021-04-04 14:00] VITALS: BP 112/72
[2021-04-04] MEDS ORDERED: ULTR50TA8 PO (14:16)
[2021-07-03] MEDS ORDERED: CLEO300C2 PO (08:48)
[2021-07-03] MEDS ORDERED: ANAS1TAB2 PO (09:15)
[2021-07-03] MEDS ORDERED: XERE5CRE EX (09:18)
== END 2021-04-04 16:39 | disposition home or self-care (01) ==
LOC: M SDC 06:33 → M MS5PR 06:34 → M SDC 15:40 → M MS5PR 04-04 16:39 → M SDC 04-04 16:39
PROVIDERS: ADMIT Surgery; ATTEND Surgery
DX: C50.912 Malignant neoplasm of unspecified site of left female breast (principal); F41.9 Anxiety disorder, unspecified; E03.8 Other specified hypothyroidism; Z87.891 Personal history of nicotine dependence; Z88.0 Allergy status to penicillin; L81.8 Other specified disorders of pigmentation; R92.8 Other abnormal and inconclusive findings on diagnostic imaging of breast; R19.7 Diarrhea, unspecified; M20.10 Hallux valgus (acquired), unspecified foot; Z79.899 Other long term (current) drug therapy
CPT/HCPCS: 19125; 19126; 36415; 38525; 76942; 78195; 81025; 86850; 86900; 86901; 88305; 88307; A9541; J0131; J0330; J1100; J1170; J1644; J2250; J2405; J2765; J3010; Q9968

== ENCOUNTER 2021-04-17 07:18 | Outpatient (RCR) | payer OTHER ==
[~2021-04-17 07:18] MED LIST changes: -CLINDAMYCIN 900 MG in IV 1 EA IV ONE; -LIDOCAINE 1% MDV 20ML VIAL SQ PRN; -LR 1,000 ML IV ONE; -METHYLENE BLUE 0.5% (5MG/ML) 10 ML AMP (PROVAYBLUE) XX ONE; +ULTR50TA8 PO
[2021-04-24] MEDS ORDERED: ANAS1TAB2 PO (16:13)
[2021-07-03] MEDS ORDERED: CLEO300C2 PO (08:48)
[2021-07-03] MEDS ORDERED: ANAS1TAB2 PO (09:15)
[2021-07-03] MEDS ORDERED: XERE5CRE EX (09:18)
== END 2021-04-24 ==
LOC: M ONCR 07:18
PROVIDERS: ATTEND General Practice
DX: C50.112 Malignant neoplasm of central portion of left female breast (principal)

== ENCOUNTER → 2021-05-08 | Outpatient (CLI) | payer OTHER ==
[~2021-05-08] MED LIST changes: +ANAS1TAB2 PO; -POTA-151 PO; +POTA20TA6 PO; +PROC10TA4 PO; -PROC10TA5 PO
== END ==
LOC: M WHC 14:46
PROVIDERS: ATTEND Specialist
DX: Z85.3 Personal history of malignant neoplasm of breast (principal); Z79.811 Long term (current) use of aromatase inhibitors

== ENCOUNTER 2021-05-24 15:44 | Outpatient (RCR) | payer OTHER | END 2021-05-25 | LOC: M ONCR 15:44 | PROVIDERS: ATTEND General Practice | DX: C50.211 Malignant neoplasm of upper-inner quadrant of right female breast (principal); N64.59 Other signs and symptoms in breast ==

== ENCOUNTER 2021-05-30 15:47 | Outpatient (RCR) | payer OTHER ==
[~2021-05-30 15:47] MED LIST changes: +POTA-151 PO; -POTA20TA6 PO; -PROC10TA4 PO; +PROC10TA5 PO
== END 2021-06-25 ==
LOC: M ONCR 15:47
PROVIDERS: ATTEND General Practice
DX: C50.112 Malignant neoplasm of central portion of left female breast (principal)

== ENCOUNTER → 2021-07-23 | Outpatient (REF) | payer OTHER ==
[~2021-07-23] MED LIST changes: +CLEO300C2 PO; +XERE5CRE EX
[2021-07-23 12:10] LABS: FREE T3 2.3 PG/ML (2.2-4.0); FREE T4 1.27 NG/DL (0.76-1.46); THYROID STIMULATING HORMONE 1.32 uIU/ML (0.358-3.740); TOTAL 25(OH) VITAMIN D 30.5 NG/ML (30.0-100.0)
[2021-07-23 16:16] LABS: CREATININE, URINE 62.8 MG/DL; MALB URINE SIEMENS 14.9 MG/L; MAU/CREAT RATIO 23.7 MCG/MG (0.0-30.0)
== END ==
LOC: M LAB REF 10:34
PROVIDERS: ATTEND Family Medicine
DX: E03.8 Other specified hypothyroidism (principal); N18.31 Chronic kidney disease, stage 3a; D64.9 Anemia, unspecified; C50.012 Malignant neoplasm of nipple and areola, left female breast

== ENCOUNTER → 2021-09-25 | Outpatient (CLI) | payer OTHER | LOC: M WHC 09:30 | PROVIDERS: ATTEND Surgery | DX: C50.919 Malignant neoplasm of unspecified site of unspecified female breast (principal); Z78.0 Asymptomatic menopausal state | CPT/HCPCS: 77066; G0279 ==

== ENCOUNTER → 2021-10-15 | Outpatient (CLI) | payer OTHER ==
[~2021-10-15] MED LIST changes: -AZAT50TA2 PO; +AZAT50TA37 PO
== END ==
LOC: M WHC 10:10
PROVIDERS: ATTEND Nurse Practitioner Women's Health
DX: R92.2 Inconclusive mammogram (principal)

== ENCOUNTER → 2021-11-22 | Outpatient (CLI) | payer OTHER | LOC: M CARPUL 14:25 | PROVIDERS: ATTEND Nurse Practitioner | DX: I42.7 Cardiomyopathy due to drug and external agent (principal) ==

== ENCOUNTER → 2022-04-09 | Outpatient (CLI) | payer OTHER | LOC: M WHC 12:17 | PROVIDERS: ATTEND Nurse Practitioner Women's Health | DX: R92.8 Other abnormal and inconclusive findings on diagnostic imaging of breast (principal); C50.812 Malignant neoplasm of overlapping sites of left female breast ==

== ENCOUNTER → 2022-05-08 | Outpatient (REF) | payer OTHER ==
[~2022-05-08] MED LIST changes: +CALC1TAB42 PO; +ENTY1INJ IV
[2022-05-08 11:22] LABS: MAGNESIUM LEVEL 1.8 MG/DL (1.8-2.4)
[2022-05-08 11:23] LABS: CHOLESTEROL LEVEL 185 MG/DL (<200); CHOLESTEROL RISK RATIO 1.55 (<5); FERRITIN 84.1 NG/ML (7.3-270.7); FREE T4 1.48 NG/DL (0.89-1.76); HDL CHOLESTEROL 119.3 MG/DL (>40); IRON (FE) 79 UG/DL (50-170); LDL CHOLESTEROL 55.3 MG/DL (<100); NON-HDL-C 66 MG/DL; THYROID STIMULATING HORMONE 2.172 uIU/ML (0.55-4.78); TOTAL IRON BINDING CAPACITY 316 UG/DL (250-425); TRIGLYCERIDES LEVEL 52 MG/DL (<150); VITAMIN B12 LEVEL 515 PG/ML (211-911)
[2022-05-08 11:24] LABS: FOLATE > 24.0 NG/ML (>5.4)
== END ==
LOC: M LAB REF 10:03
PROVIDERS: ATTEND Family Medicine
DX: D64.9 Anemia, unspecified (principal); R25.2 Cramp and spasm; E03.8 Other specified hypothyroidism

== ENCOUNTER → 2022-09-26 | Outpatient (CLI) | payer OTHER ==
[~2022-09-26] MED LIST changes: +CELE1CAP7; +FEOS200T2 PO; +OYST500C PO
== END ==
LOC: M WHC 10:01
PROVIDERS: ATTEND Nurse Practitioner Women's Health
DX: Z12.31 Encounter for screening mammogram for malignant neoplasm of breast (principal); C50.912 Malignant neoplasm of unspecified site of left female breast
CPT/HCPCS: 76641; 77066; G0279

== ENCOUNTER → 2023-04-16 | Outpatient (REF) | payer OTHER ==
[~2023-04-16] MED LIST changes: -CELE1CAP7; +CELE1CAP99 PO; -K-TA10TA PO; -LIDO1CRE42 TOP; +LIDO30CR18 TOP; +POTA-164 PO
[2023-04-16 11:55] LABS: BASO # 0.1 10^3/uL (0.0-0.2); BASO % 0.8 % (0.0-1.0); EOS # 3.3 10^3/uL (0.0-0.5); HEMATOCRIT 35.7 % (36.0-47.0); HEMOGLOBIN 11.7 g/dl (12.0-15.5); LYMPH # 1.8 10^3/uL (1.5-5.0); MEAN CORPUSCULAR HEMOGLOBIN 32.1 pg (27.0-33.0); MEAN CORPUSCULAR HGB CONC 32.8 g/dl (32.0-36.5); MEAN CORPUSCULAR VOLUME 98.1 fl (80.0-96.0); MONO # 0.7 10^3/uL (0.0-0.8); MONO % 6.4 % (2.0-8.0); NEUTROPHILS # 5.1 10^3/uL (1.5-8.5); NEUTROPHILS % 46.2 % (36.0-66.0); PLATELET COUNT, AUTOMATED 225 10^3/uL (150-450); RED BLOOD COUNT 3.64 10^6/uL (4.00-5.40)
[2023-04-16 12:12] LABS: EOS % 30.2 % (0.0-3.0)
[2023-04-16 13:22] LABS: TOTAL 25(OH) VITAMIN D 38.2 NG/ML (20.0-100.0)
[2023-04-16 13:23] LABS: ALBUMIN 3.2 G/DL (3.2-5.2); ALKALINE PHOSPHATASE 70 U/L (46-116); ALT/SGPT 19 U/L (7.0-40); AST/SGOT 26 U/L (<34); BILIRUBIN,TOTAL 0.3 MG/DL (0.3-1.2); BLOOD UREA NITROGEN 20 MG/DL (9-23); CALCIUM LEVEL 8.7 MG/DL (8.3-10.6); CARBON DIOXIDE LEVEL 25 MMOL/L (20-31); CHLORIDE LEVEL 110 MMOL/L (98-107); CREATININE FOR GFR 0.54 MG/DL (0.55-1.30); GLOMERULAR FILTRATION RATE > 60.0 (>45); GLUCOSE, FASTING 76 MG/DL (74-106); POTASSIUM SERUM 3.8 MMOL/L (3.5-5.1); SODIUM LEVEL 143 MMOL/L (136-145); TOTAL PROTEIN 6.5 G/DL (5.7-8.2)
== END ==
LOC: M LAB REF 11:34
PROVIDERS: ATTEND Student in an Organized Health Care Education/Training Program
DX: K50.819 Crohn's disease of both small and large intestine with unspecified complications (principal)

== ENCOUNTER → 2023-05-14 | Outpatient (CLI) | payer OTHER | LOC: M WHC 09:28 | PROVIDERS: ATTEND Internal Medicine Hematology & Oncology | DX: C50.919 Malignant neoplasm of unspecified site of unspecified female breast (principal) ==

== ENCOUNTER → 2023-11-04 | Outpatient (CLI) | payer OTHER ==
[~2023-11-04] MED LIST changes: +DIPH1TAB81 PO; -DIPH2.5T15 PO; +FERR325T19; +OMEP-173; +ONDA-282 PO; -ONDA4TAB6 PO; +PANCCAP3; +POTA-151; +XIFA550T
== END ==
LOC: M PLARAD 10:55
PROVIDERS: ATTEND Specialist
DX: C50.812 Malignant neoplasm of overlapping sites of left female breast (principal)
CPT/HCPCS: 78815; A9552

== ENCOUNTER → 2024-01-13 | Outpatient (CLI) | payer OTHER | LOC: M WHC 12:26 | PROVIDERS: ATTEND Internal Medicine Hematology & Oncology | DX: Z85.3 Personal history of malignant neoplasm of breast (principal); R92.333 Mammographic heterogeneous density, bilateral breasts; M79.81 Nontraumatic hematoma of soft tissue | CPT/HCPCS: 76641; 77066; G0279 ==